=== PATIENT | male | born 1940 | race Caucasian/White ===

== ENCOUNTER → 2017-08-20 | Outpatient (CLI) | payer OTHER ==
[~2017-08-20] MED LIST: ADULT LOW DOSE81 MG PO; ADVAIR 250-501 EACH INH; ALLOPURINOL 30300 M1 PO; ALLOPURINOL 30300 M2 PO; ASPIRIN EC81 M1 PO; ATORVASTATIN CA40 MG PO; CHLORTHALIDONE25 MG PO; COMBIVENT INH; COUMADIN 5 MG TA5 M1 PO; FISH OIL 1,0001 EAC7 PO; GLUCOSAMINE1000 MG PO; LIPITOR40 MG PO; LISINOPRIL40 MG PO; LOPRESSOR PO; LOPRESSOR100 MG PO; MECLIZINE HCL12.5 MG PO; MULTAQ 400 MG400 MG PO; MULTI-VITAMIN1 EAC5 PO; NASONEX17 GM; NASONEX17 GM NS; PERCOCET 5-3251 EACH PO; PROTONIX40 M2 PO; RANITIDINE HCL300 M1 PO; SIMVASTATIN80 MG PO; TOPROL XL100 MG PO; ZOFRAN ODT4 MG PO; [UNRECOGNIZED DRUG - OTHER] PO
== END ==
LOC: RAD 11:06
DX: J45.40 Moderate persistent asthma, uncomplicated (principal)

== ENCOUNTER → 2021-04-26 | Outpatient (CLI) | payer OTHER | LOC: RAD 08:54 | PROVIDERS: ATTEND Internal Medicine | DX: J45.40 Moderate persistent asthma, uncomplicated (principal) ==

== ENCOUNTER 2021-05-23 11:57 | Emergency (ER) | payer OTHER ==
[~2021-05-23] VITALS: Ht 172.7 cm; Wt 93.0 kg
[2021-05-23 12:39] LABS: ABSOLUTE NEUTROPHILS 12.1 thou/uL (1.4-8.2); BASOPHILS 0.1 % (0.0-2.0); EOSINOPHILS 0.1 % (0.0-3.0); HEMATOCRIT 34.4 % (42.0-52.0); HEMOGLOBIN 11.3 gm/dL (14.0-18.0); LYMPHOCYTES 4.1 % (24.0-44.0); MCH 30.4 pg (26.0-34.0); MCHC 32.7 g/dL (28.0-37.0); MCV 92.9 fL (80.0-100.0); MONOCYTES 4.7 % (1.0-8.0); PLATELET COUNT 306 thou/uL (150-400); RBC 3.71 mil/uL (4.50-6.00); RDW 17.6 % (10.5-14.5); WBC 13.3 thou/uL (4.0-11.0)
[2021-05-23 12:42] LABS: CALCIUM 9.5 mg/dL (8.5-10.1); CREATININE 1.7 mg/dL (0.7-1.3)
[2021-05-23 12:49] LABS: ALBUMIN 3.1 g/dL (3.4-5.0); TOTAL BILIRUBIN 0.4 mg/dL (0.2-1.0); TOTAL PROTEIN 6.7 g/dL (6.4-8.2)
[2021-05-23 14:31] LABS: URINE BILIRUBIN NEGATIVE (Negative); URINE BLOOD 3+ (Negative); URINE CLARITY CLEAR; URINE COLOR YELLOW; URINE GLUCOSE-RANDOM* NEGATIVE (Negative); URINE KETONES NEGATIVE (Negative); URINE LEUKOCYTES-REFLEX NEGATIVE (Negative); URINE NITRITE-REFLEX NEGATIVE (Negative); URINE PROTEIN (DIPSTICK) 1+ (Negative); URINE SPECIFIC GRAVITY >= 1.030 (1.005-1.035); URINE UROBILINOGEN 0.2 E.U./dl (0.2-1.0)
[2021-05-23 14:44] LABS: CASTS None Seen /LPF (None Seen); CRYSTALS None Seen /LPF (None Seen); SQUAMOUS 0-3 Few /LPF (0-3); URINE RBC >20 Many /HPF (NONE SEEN)
[2021-05-23 14:45] LABS: URINE WBC-REFLEX 0-5 Rare /HPF (0-5)
[2021-05-23 15:00] LABS: PROTIME 46.1 Seconds (10.5-12.1)
[2021-05-23 15:04] LABS: INR 4.55
[2021-05-23 16:50] VITALS: BP 164/98
== END 2021-05-23 16:45 | disposition home or self-care (01) ==
LOC: ER 11:57
PROVIDERS: Emergency Medicine
DX: N23 Unspecified renal colic (principal); Z20.822 Contact with and (suspected) exposure to COVID-19; N21.1 Calculus in urethra; J44.1 Chronic obstructive pulmonary disease with (acute) exacerbation; I10 Essential (primary) hypertension; Z79.899 Other long term (current) drug therapy; Z88.8 Allergy status to other drugs, medicaments and biological substances